=== PATIENT | male | born 1955 | race Caucasian/White ===

== ENCOUNTER → 2020-03-21 | Day surgery (SDC) | payer MEDICARE ==
[~2020-03-21] MED LIST: JARDIANCE10 MG PO; LIPITOR20 MG PO; NEURONTIN300 MG PO; OR PHACO EYE KIT ONE; PREOP PHACO EYE KIT ONE; TRULICITY0.75 MG/0. SC; WARFARIN SODIUM1 MG PO; WARFARIN SODIUM3 MG PO; Z.0.ALLOPURINOL300 M; Z.0.JANUVIA25 MG; Z.0.NAPROXEN500 MG; Z.0.VYTORIN 10-401 E
[2020-03-21 15:15] VITALS: BP 123/79
== END | disposition home or self-care (01) ==
LOC: OR 10:32
PROVIDERS: ATTEND Ophthalmology
DX: H25.11 Age-related nuclear cataract, right eye (principal); E78.5 Hyperlipidemia, unspecified; E11.9 Type 2 diabetes mellitus without complications; I44.0 Atrioventricular block, first degree; Z88.2 Allergy status to sulfonamides; Z01.812 Encounter for preprocedural laboratory examination; Z20.822 Contact with and (suspected) exposure to COVID-19; Z79.01 Long term (current) use of anticoagulants; Z79.84 Long term (current) use of oral hypoglycemic drugs; Z86.718 Personal history of other venous thrombosis and embolism
CPT/HCPCS: 66984; U0002; V2632

== ENCOUNTER → 2020-04-08 | Day surgery (SDC) | payer MEDICARE ==
[~2020-04-08] MED LIST changes: +CYCLOPENTOLATE HCL 2% OPTH SOLN 2 ML BTL OP ONE; +MOXIFLOXACIN HCL(OPTH) 3 ML BTL ONE; +PHENYLEPHRINE HCL 10% 5 ML OPTH SOLN ONE; -PREOP PHACO EYE KIT ONE; -Z.0.JANUVIA25 MG; +Z.0.JANUVIA25 MG PO; -Z.0.VYTORIN 10-401 E; +Z.0.VYTORIN 10-401 E PO
[2020-04-08 09:15] VITALS: BP 118/82
== END | disposition home or self-care (01) ==
LOC: OR 06:06
PROVIDERS: ATTEND Ophthalmology
DX: H25.12 Age-related nuclear cataract, left eye (principal); I10 Essential (primary) hypertension; E11.9 Type 2 diabetes mellitus without complications; Z88.2 Allergy status to sulfonamides; Z01.812 Encounter for preprocedural laboratory examination; Z20.822 Contact with and (suspected) exposure to COVID-19
CPT/HCPCS: 36415; 66984; 82948; U0002 ×2; V2632